=== PATIENT | female | born 1960 | race African-American/Black ===

== ENCOUNTER 2018-12-06 10:31 | Inpatient (IN) | payer MEDICARE, MEDICAID ==
[~2018-12-06] VITALS: Ht 162.6 cm; Wt 132.4 kg
[~2018-12-06 10:31] MED LIST: ACET-2178 PO; AMLO10TA80 PO; ASPI-1159 PO; ATOR10TA PO; BENA40TA9 PO; CLON0.1T PO; GABA-531 PO; HYDR25TA PO; SUMA100T PO; TRAZ-213 PO
[2018-12-06 10:54] LABS: BASOPHILS % 0.4 % (0.0-2.0); EOSINOPHILS % 1.2 % (0.0-5.0); HEMATOCRIT. 36.4 % (36.0-48.0); HEMOGLOBIN. 11.8 g/dL (12.0-16.0); MEAN PLATELET VOLUME 7.4 fl (7.4-10.4); MONOCYTES % 6.7 % (2.0-8.0); NEUTROPHILS % 67.7 % (40.0-76.0); PLATELET 260 x1000/uL (130-400); RED BLOOD CELL COUNT 4.39 mill/uL (4.2-5.4); RED CELL DISTRIBUTION WIDTH 14.7 % (11.6-14.6)
[2018-12-06 10:59] LABS: CHLORIDE 105 mEq/L (98-107)
[2018-12-06 11:04] LABS: ETHANOL BLOOD < 10 mg/dL; PROTHROMBIN TIME 10.3 sec (9.6-11.0)
[2018-12-06 11:56] LABS: CLARITY URINE CLEAR (CLEAR); COLOR URINE YELLOW (YELLOW); KETONES URINE NEGATIVE (NEGATIVE); LEUKOCYTE ESTERASE URINE NEGATIVE (NEGATIVE); NITRITE URINE NEGATIVE (NEGATIVE); OCCULT BLOOD URINE NEGATIVE (NEGATIVE); PH URINE 5.5 (4.5-8.0); PROTEIN URINE NEGATIVE (NEGATIVE); SPECIFIC GRAVITY URINE 1.004 (1.005-1.030); UROBILINOGEN URINE 0.2 E.U./dL (0.2-1.0)
[2018-12-06 12:13] LABS: *AMPHETAMINES SCREEN URINE NEGATIVE (NEGATIVE); *BARBITURATES SCREEN URINE NEGATIVE (NEGATIVE); *BENZODIAZEPINES SCREEN URINE NEGATIVE (NEGATIVE); *COCAINE SCREEN URINE NEGATIVE (NEGATIVE); METHADONE URINE SCREEN NEGATIVE (NEGATIVE)
[2018-12-06 12:14] LABS: CANNABINOID URINE SCREEN NEGATIVE (NEGATIVE); OPIATES URINE SCREEN NEGATIVE (NEGATIVE); PHENCYCLIDINE URINE SCREEN NEGATIVE (NEGATIVE)
[2018-12-06] MEDS ORDERED: SODIUM BICARBONATE 4% (2.4MEQ) 5ML VIAL IV ONE (15:45)
[2018-12-06] MEDS ORDERED: LIDOCAINE HCL 1% 20ML VIAL (Pyxis) INJ ONE (15:45)
[2018-12-06] MEDS ORDERED: IOHEXOL-350 100 ML BOTTLE ONE (16:23)
[2018-12-06] MEDS ORDERED: MORPHINE SULFATE 4 MG/ML CPJ (NOT FOR IM USE) IV NR (17:45)
[2018-12-06 21:55] VITALS: BP 130/62
[2018-12-06 22:00] VITALS: BP 130/62
[2018-12-06] MEDS ORDERED: FURO40TA5 MT (22:41)
[2018-12-06] MEDS ORDERED: DOCUSATE SODIUM 100MG CAPSULE PO PRN (23:15)
[2018-12-06] MEDS ORDERED: CLONIDINE 0.1MG TABLET PO PRN (23:15)
[2018-12-06] MEDS ORDERED: ONDANSETRON HCL 4MG/2ML INJ IV PRN (23:15)
[2018-12-06] MEDS ORDERED: GUAIFENESIN 200MG/10ML SUGAR FREE UDC PO PRN (23:15)
[2018-12-06] MEDS ORDERED: MAGNESIUM/ALUMINUM HYDROXIDE/SIMETHICONE 30ML UDC PO PRN (23:15)
[2018-12-06] MEDS ORDERED: ACETAMINOPHEN 325MG TABLET PO PRN (23:15)
[2018-12-06 23:54] VITALS: BP 99/71
[2018-12-07] VITALS (13 sets, daily range): BP systolic 91–128; BP diastolic 39–77
[2018-12-07] MEDS: HYDROCODONE/ACETAMINOPHEN 5/325MG TABLET PO PRN ×5 (00:04→22:22)
[2018-12-07 06:59] LABS: CHLORIDE 106 mEq/L (98-107)
[2018-12-07 07:13] LABS: BASOPHILS % 0.6 % (0.0-2.0); EOSINOPHILS % 1.7 % (0.0-5.0); HEMATOCRIT. 33.9 % (36.0-48.0); HEMOGLOBIN. 11.4 g/dL (12.0-16.0); LYMPHOCYTES % 23.8 % (20.0-50.0); MEAN CORPUSCULAR HEMOGLOBIN 27.7 pg (28.0-32.0); MEAN CORPUSCULAR VOLUME 82.6 fL (81.0-99.0); MONOCYTES % 6.1 % (2.0-8.0); NEUTROPHILS % 67.8 % (40.0-76.0); RED CELL DISTRIBUTION WIDTH 14.5 % (11.6-14.6)
[2018-12-07] MEDS: ASPIRIN 81MG EC TABLET PO SCH (08:37)
[2018-12-07] MEDS: CLOPIDOGREL 75MG TABLET PO SCH (08:37)
[2018-12-07] MEDS: AMLODIPINE 10MG TABLET PO SCH (09:00)
[2018-12-07 09:12] LABS: T4 FREE 0.85 ng/dL (0.76-1.46)
[2018-12-07 09:43] LABS: FOLIC ACID (FOLATE) SERUM 16.5 ng/mL (>5.38)
[2018-12-07] MEDS ORDERED: POTASSIUM CHLORIDE 20MEQ TABLET SR PO NR (11:00)
[2018-12-07 13:07] LABS: PLATELET 184 x1000/uL (130-400)
[2018-12-07] MEDS: ATORVASTATIN CALCIUM 20MG TABLET PO SCH (20:20)
[2018-12-08] VITALS (14 sets, daily range): BP systolic 101–144; BP diastolic 64–109
[2018-12-08] MEDS: CLOPIDOGREL 75MG TABLET PO SCH (08:24)
[2018-12-08] MEDS: ASPIRIN 81MG EC TABLET PO SCH (08:26)
[2018-12-08] MEDS: AMLODIPINE 10MG TABLET PO SCH (08:26)
[2018-12-08] MEDS: HYDROCODONE/ACETAMINOPHEN 5/325MG TABLET PO PRN ×3 (08:26→22:07)
[2018-12-08] MEDS: ATORVASTATIN CALCIUM 20MG TABLET PO SCH (22:02)
[2018-12-09] VITALS (13 sets, daily range): BP systolic 98–153; BP diastolic 49–90
[2018-12-09] MEDS: ASPIRIN 81MG EC TABLET PO SCH (08:36)
[2018-12-09] MEDS: CLOPIDOGREL 75MG TABLET PO SCH (08:36)
[2018-12-09] MEDS: AMLODIPINE 10MG TABLET PO SCH (08:36)
[2018-12-09] MEDS: HYDROCODONE/ACETAMINOPHEN 5/325MG TABLET PO PRN (08:37)
[2018-12-09 11:29] LABS: T4 FREE 0.78 ng/dL (0.76-1.46)
[2018-12-09] MEDS: HYDROMORPHONE HCL/PF 2MG/ML CPJ IV PRN ×2 (14:26→20:05)
[2018-12-09 16:12] LABS: CREATINE KINASE 83 IU/L (26-192)
[2018-12-09 16:13] LABS: CREATINE KINASE MB FRACTION 3.2 ng/mL (0.5-3.6)
[2018-12-09] MEDS ORDERED: REGADENOSON 0.4 MG/5 ML IV NR (18:30)
[2018-12-09] MEDS: ATORVASTATIN CALCIUM 20MG TABLET PO SCH (21:37)
[2018-12-09 23:50] LABS: CREATINE KINASE 93 IU/L (26-192)
[2018-12-09 23:51] LABS: CREATINE KINASE MB FRACTION < 1.0 ng/mL (0.5-3.6)
[2018-12-10] VITALS: BP 119/62
[2018-12-10 02:00] VITALS: BP 133/70
[2018-12-10 04:00] VITALS: BP 120/75
[2018-12-10 06:00] VITALS: BP 131/93
[2018-12-10 07:01] LABS: CREATINE KINASE 86 IU/L (26-192)
[2018-12-10 07:02] LABS: CREATINE KINASE MB FRACTION < 1.0 ng/mL (0.5-3.6)
[2018-12-10] MEDS ORDERED: REGADENOSON 0.4 MG/5 ML IV ONE (07:46)
[2018-12-10] MEDS: AMLODIPINE 10MG TABLET PO SCH (09:00)
[2018-12-10 09:26] VITALS: BP 96/52
[2018-12-10] MEDS: CLOPIDOGREL 75MG TABLET PO SCH (09:41)
[2018-12-10] MEDS: ASPIRIN 81MG EC TABLET PO SCH (09:41)
[2018-12-10] MEDS: HYDROMORPHONE HCL/PF 2MG/ML CPJ IV PRN (09:42)
[2018-12-10 10:02] VITALS: BP 160/95
== END 2018-12-10 11:41 | DRG 74 ==
LOC: ER 10:31 → 3WST 13:26 → EDBEDREQ 13:30 → ENRESERV 19:47
PROVIDERS: ADMIT Hospitalist; ATTEND Hospitalist
PROC: 02HV33Z Insertion of Infusion Device into Superior Vena Cava, Percutaneous Approach (ICD-10-PCS; principal; 2018-12-06)
PROC: B5181ZA Fluoroscopy of Superior Vena Cava using Low Osmolar Contrast, Guidance (ICD-10-PCS; 2018-12-06)
PROC: B548ZZA Ultrasonography of Superior Vena Cava, Guidance (ICD-10-PCS; 2018-12-06)
DX: G90.8 Other disorders of autonomic nervous system (principal); I69.354 Hemiplegia and hemiparesis following cerebral infarction affecting left non-dominant side; E78.00 Pure hypercholesterolemia, unspecified; I10 Essential (primary) hypertension; G43.909 Migraine, unspecified, not intractable, without status migrainosus; D64.9 Anemia, unspecified; E78.5 Hyperlipidemia, unspecified; H54.7 Unspecified visual loss; I11.9 Hypertensive heart disease without heart failure; M47.812 Spondylosis without myelopathy or radiculopathy, cervical region; M79.2 Neuralgia and neuritis, unspecified; Z82.49 Family history of ischemic heart disease and other diseases of the circulatory system; Z95.0 Presence of cardiac pacemaker; Z79.899 Other long term (current) drug therapy; Z79.82 Long term (current) use of aspirin
CPT/HCPCS: 36415; 36569; 36573; 70496; 70498; 71045; 78452; 78582; 80061; 80305; 80320; 82550; 82553; 82607; 82746; 83036; 83721; 83880; 84439; 84443; 84481; 84484; 85379; 92610; 93005; 93017; 93306; 93970; 96374; 97116; 97162; 97166; 97530; 99291; A9500; A9558; C1725; C1769; J1170; J2270; J2785; J3490; Q9967; G0480

== ENCOUNTER 2018-12-10 11:45 | Inpatient (IN) | payer MEDICARE, MEDICAID ==
[~2018-12-10] VITALS: Ht 162.5 cm; Wt 133.8 kg
[~2018-12-10 11:45] MED LIST changes: -AMLO10TA80 PO; +FURO40TA5 MT
[2018-12-10 12:00] VITALS: BP 120/57
[2018-12-10] MEDS ORDERED: DOCUSATE SODIUM 250MG CAPSULE PO PRN (13:15)
[2018-12-10] MEDS ORDERED: ONDANSETRON HCL 4MG TABLET PO PRN (13:15)
[2018-12-10] MEDS ORDERED: CLONIDINE 0.1MG TABLET PO PRN (13:15)
[2018-12-10] MEDS ORDERED: MAGNESIUM/ALUMINUM HYDROXIDE/SIMETHICONE 30ML UDC PO PRN (13:15)
[2018-12-10] MEDS ORDERED: ACETAMINOPHEN 650MG/20.3ML UDC PO PRN (13:15)
[2018-12-10] MEDS ORDERED: GUAIFENESIN 200MG/10ML SUGAR FREE UDC PO PRN (13:15)
[2018-12-10] MEDS: HYDROCODONE/ACETAMINOPHEN 5/325MG TABLET PO PRN ×2 (14:32→21:06)
[2018-12-10 20:00] VITALS: BP 119/78
[2018-12-10] MEDS: ATORVASTATIN CALCIUM 20MG TABLET PO SCH (21:06)
[2018-12-11 08:00] VITALS: BP 135/72
[2018-12-11 08:28] VITALS: BP 135/72
[2018-12-11] MEDS: CLOPIDOGREL 75MG TABLET PO SCH (08:38)
[2018-12-11] MEDS: AMLODIPINE 10MG TABLET PO SCH (08:38)
[2018-12-11] MEDS: ASPIRIN 81MG EC TABLET PO SCH (08:38)
[2018-12-11] MEDS: HYDROCODONE/ACETAMINOPHEN 5/325MG TABLET PO PRN ×3 (08:39→19:51)
[2018-12-11 14:08] LABS: BASOPHILS % 0.4 % (0.0-2.0); EOSINOPHILS % 1.5 % (0.0-5.0); HEMATOCRIT. 36.8 % (36.0-48.0); HEMOGLOBIN. 12.1 g/dL (12.0-16.0); LYMPHOCYTES % 21.7 % (20.0-50.0); MEAN CORPUSCULAR HEMOGLOBIN 27.2 pg (28.0-32.0); MEAN CORPUSCULAR VOLUME 82.9 fL (81.0-99.0); MEAN PLATELET VOLUME 7.4 fl (7.4-10.4); MONOCYTES % 5.6 % (2.0-8.0); NEUTROPHILS % 70.8 % (40.0-76.0); PLATELET 250 x1000/uL (130-400); RED BLOOD CELL COUNT 4.44 mill/uL (4.2-5.4); RED CELL DISTRIBUTION WIDTH 14.4 % (11.6-14.6)
[2018-12-11 14:09] LABS: CHLORIDE 109 mEq/L (98-107)
[2018-12-11 16:20] LABS: COLOR URINE YELLOW (YELLOW); KETONES URINE NEGATIVE (NEGATIVE); LEUKOCYTE ESTERASE URINE TRACE (NEGATIVE); NITRITE URINE NEGATIVE (NEGATIVE); OCCULT BLOOD URINE NEGATIVE (NEGATIVE); PH URINE 5.5 (4.5-8.0); PROTEIN URINE NEGATIVE (NEGATIVE); SPECIFIC GRAVITY URINE 1.029 (1.005-1.030)
[2018-12-11 16:22] LABS: CLARITY URINE HAZY (CLEAR)
[2018-12-11 19:40] VITALS: BP 116/75
[2018-12-11] MEDS: ATORVASTATIN CALCIUM 20MG TABLET PO SCH (20:35)
[2018-12-12 07:42] LABS: FOLIC ACID (FOLATE) SERUM 13.8 ng/mL (>5.38)
[2018-12-12 07:45] LABS: BASOPHILS % 0.4 % (0.0-2.0); EOSINOPHILS % 1.9 % (0.0-5.0); HEMOGLOBIN. 11.5 g/dL (12.0-16.0); LYMPHOCYTES % 26.3 % (20.0-50.0); MEAN CORPUSCULAR HEMOGLOBIN 27.4 pg (28.0-32.0); MEAN CORPUSCULAR VOLUME 83.2 fL (81.0-99.0); MEAN PLATELET VOLUME 7.7 fl (7.4-10.4); MONOCYTES % 5.3 % (2.0-8.0); NEUTROPHILS % 66.1 % (40.0-76.0); PLATELET 245 x1000/uL (130-400); RED CELL DISTRIBUTION WIDTH 14.3 % (11.6-14.6)
[2018-12-12 08:00] VITALS: BP 113/87
[2018-12-12 08:20] LABS: CHLORIDE 110 mEq/L (98-107)
[2018-12-12 08:31] LABS: PHOSPHORUS 3.4 mg/dL (2.5-4.9)
[2018-12-12 08:34] LABS: LDL CHOLESTEROL 74 mg/dL (5-100)
[2018-12-12 08:36] LABS: HDL CHOLESTEROL 51 mg/dL (40-59)
[2018-12-12 08:38] LABS: TOTAL IRON BINDING CAPACITY 261 ug/dL (250-450)
[2018-12-12] MEDS: CLOPIDOGREL 75MG TABLET PO SCH (09:57)
[2018-12-12] MEDS: HYDROCODONE/ACETAMINOPHEN 5/325MG TABLET PO PRN ×2 (09:57→16:56)
[2018-12-12] MEDS: AMLODIPINE 10MG TABLET PO SCH (09:57)
[2018-12-12] MEDS: ASPIRIN 81MG EC TABLET PO SCH (09:57)
[2018-12-12] MEDS ORDERED: CYANOCOBALAMIN 1000MCG/ML VIAL IM NR (18:00)
[2018-12-12 20:00] VITALS: BP 118/98
[2018-12-12] MEDS: ATORVASTATIN CALCIUM 20MG TABLET PO SCH (20:25)
[2018-12-13] MEDS: HYDROCODONE/ACETAMINOPHEN 5/325MG TABLET PO PRN ×3 (00:29→08:00)
[2018-12-13 08:00] VITALS: BP 133/88
[2018-12-13] MEDS: CLOPIDOGREL 75MG TABLET PO SCH (09:11)
[2018-12-13] MEDS: ASCORBIC ACID 500 MG TABLET PO SCH (09:11)
[2018-12-13] MEDS: ASPIRIN 81MG EC TABLET PO SCH (09:11)
[2018-12-13] MEDS: FERROUS SULFATE 325MG TABLET PO SCH ×3 (09:11→16:31)
[2018-12-13] MEDS: AMLODIPINE 10MG TABLET PO SCH (09:12)
[2018-12-13] MEDS: HYDROCODONE/ACETAMINOPHEN 10/325MG TABLET PO PRN ×2 (15:56→22:00)
[2018-12-13 20:00] VITALS: BP 131/73
[2018-12-13] MEDS: ATORVASTATIN CALCIUM 20MG TABLET PO SCH (21:18)
[2018-12-14 08:00] VITALS: BP 143/92
[2018-12-14] MEDS: CLOPIDOGREL 75MG TABLET PO SCH (08:34)
[2018-12-14] MEDS: ASCORBIC ACID 500 MG TABLET PO SCH (08:34)
[2018-12-14] MEDS: ASPIRIN 81MG EC TABLET PO SCH (08:34)
[2018-12-14] MEDS: AMLODIPINE 10MG TABLET PO SCH (08:34)
[2018-12-14] MEDS: FERROUS SULFATE 325MG TABLET PO SCH ×3 (08:34→16:03)
[2018-12-14] MEDS: HYDROCODONE/ACETAMINOPHEN 10/325MG TABLET PO PRN ×3 (08:39→21:46)
[2018-12-14 08:56] LABS: T4 FREE 0.85 ng/dL (0.76-1.46)
[2018-12-14 20:00] VITALS: BP 123/62
[2018-12-14] MEDS: ATORVASTATIN CALCIUM 20MG TABLET PO SCH (21:02)
[2018-12-15 08:00] VITALS: BP 136/73
[2018-12-15] MEDS: AMLODIPINE 10MG TABLET PO SCH (08:16)
[2018-12-15] MEDS: FERROUS SULFATE 325MG TABLET PO SCH (08:16)
[2018-12-15] MEDS: ASPIRIN 81MG EC TABLET PO SCH (08:16)
[2018-12-15] MEDS: ASCORBIC ACID 500 MG TABLET PO SCH (08:16)
[2018-12-15] MEDS: CLOPIDOGREL 75MG TABLET PO SCH (08:16)
[2018-12-15] MEDS: HYDROCODONE/ACETAMINOPHEN 10/325MG TABLET PO PRN (08:29)
[2018-12-15 09:22] VITALS: BP 136/73
[2018-12-15 19:10] LABS: 25-HYDROXY VITAMIN D3 12 ng/mL (.)
== END 2018-12-15 12:26 | disposition home health service (06) | DRG 56 ==
PROVIDERS: ADMIT Physical Medicine & Rehabilitation Spinal Cord Injury Medicine; ATTEND Hospitalist
DX: I69.354 Hemiplegia and hemiparesis following cerebral infarction affecting left non-dominant side (principal); I63.9 Cerebral infarction, unspecified; Z68.43 Body mass index [BMI] 50.0-59.9, adult; E78.00 Pure hypercholesterolemia, unspecified; G43.909 Migraine, unspecified, not intractable, without status migrainosus; H54.7 Unspecified visual loss; I10 Essential (primary) hypertension; R53.81 Other malaise; D50.9 Iron deficiency anemia, unspecified; M47.812 Spondylosis without myelopathy or radiculopathy, cervical region; E78.5 Hyperlipidemia, unspecified; E66.01 Morbid (severe) obesity due to excess calories; E03.9 Hypothyroidism, unspecified; Z95.0 Presence of cardiac pacemaker; Z82.49 Family history of ischemic heart disease and other diseases of the circulatory system; Z79.899 Other long term (current) drug therapy; Z79.02 Long term (current) use of antithrombotics/antiplatelets; Z79.82 Long term (current) use of aspirin; Z80.8 Family history of malignant neoplasm of other organs or systems
CPT/HCPCS: 36415; 80048; 80061; 82306; 82607; 82728; 82746; 83540; 83550; 83735; 84100; 84134; 84439; 84443; 84481; 92523; 92610; 93970; 93971; 97110; 97116; 97162; 97166; 97530; 97535; G0515; J3420

== ENCOUNTER 2019-06-21 00:05 | Inpatient (IN) | payer MEDICARE, MEDICAID ==
[~2019-06-21] VITALS: Ht 162.6 cm; Wt 118.4 kg
[~2019-06-21 00:05] MED LIST changes: -ACET-2178 PO; +AMLO10TA80 MT; +ASCO500C15 MT; -ASPI-1159 PO; +ASPI-1393 PO; -ATOR10TA PO; +ATOR10TA69 MT; +ATOR20TA PO; -CLON0.1T PO; +CLOP75TA33 MT; +HYDR25TA MT; -HYDR25TA PO; +SPIR25TA6 PO; -SUMA100T PO
[2019-06-21] MEDS ORDERED: ONDANSETRON HCL 4MG/2ML INJ IV ONE (01:15)
[2019-06-21] MEDS ORDERED: MORPHINE SULFATE 4 MG/ML CPJ (NOT FOR IM USE) IV ONE (01:15)
[2019-06-21 01:36] LABS: BASOPHILS % 0.8 % (0.0-2.0); EOSINOPHILS % 1.5 % (0.0-5.0); HEMATOCRIT. 34.3 % (36.0-48.0); HEMOGLOBIN. 11.4 g/dL (12.0-16.0); MEAN CORPUSCULAR HEMOGLOBIN 28.2 pg (28.0-32.0); MEAN CORPUSCULAR VOLUME 84.7 fL (81.0-99.0); MEAN PLATELET VOLUME 7.6 fl (7.4-10.4); MONOCYTES % 6.3 % (2.0-8.0); NEUTROPHILS % 64.4 % (40.0-76.0); PLATELET 253 x1000/uL (130-400); RED BLOOD CELL COUNT 4.05 mill/uL (4.2-5.4); RED CELL DISTRIBUTION WIDTH 14.2 % (11.6-14.6)
[2019-06-21 01:40] LABS: CHLORIDE 110 mEq/L (98-107)
[2019-06-21 02:18] LABS: PARTIAL THROMBOPLASTIN TIME 26.3 sec (23.4-31.0); PROTHROMBIN TIME 10.1 sec (9.6-11.0)
[2019-06-21] MEDS ORDERED: IOHEXOL-350 100 ML BOTTLE ONE (05:19)
[2019-06-21] MEDS ORDERED: LORAZEPAM 0.5MG TABLET PO PRN (06:45)
[2019-06-21] MEDS ORDERED: NITROGLYCERIN 0.4MG TABLET SL SL PRN (06:45)
[2019-06-21] MEDS ORDERED: MAGNESIUM/ALUMINUM HYDROXIDE/SIMETHICONE 30ML UDC PO PRN (06:45)
[2019-06-21] MEDS ORDERED: IPRATROPIUM/ALBUTEROL 0.5-3(2.5)MG/3ML NEB NEB PRN (06:45)
[2019-06-21] MEDS ORDERED: ACETAMINOPHEN 325MG TABLET PO PRN (06:45)
[2019-06-21] MEDS ORDERED: ONDANSETRON HCL 4MG/2ML INJ IV PRN (06:45)
[2019-06-21] MEDS ORDERED: DOCUSATE SODIUM 100MG CAPSULE PO PRN (06:45)
[2019-06-21] MEDS ORDERED: GUAIFENESIN 200MG/10ML SUGAR FREE UDC PO PRN (06:45)
[2019-06-21] MEDS ORDERED: ZOLPIDEM TARTRATE 5MG TABLET PO PRN (06:45)
[2019-06-21] MEDS ORDERED: KETOROLAC 15MG/ML VIAL IV PRN (06:45)
[2019-06-21] MEDS ORDERED: CLONIDINE 0.1MG TABLET PO PRN (06:45)
[2019-06-21] MEDS: HYDROCODONE/ACETAMINOPHEN 10/325MG TABLET PO PRN ×2 (07:55→21:47)
[2019-06-21 08:50] VITALS: BP 121/70
[2019-06-21 09:00] VITALS: BP 121/71
[2019-06-21] MEDS ORDERED: ASPIRIN 325MG EC TABLET PO SCH (09:00)
[2019-06-21] MEDS ORDERED: ENOXAPARIN 40MG/0.4ML SYR SUBCUT SCH (09:00)
[2019-06-21] MEDS ORDERED: APIX5TAB PO (11:06)
[2019-06-21] MEDS: FAMOTIDINE 20MG TABLET PO SCH ×2 (11:15→21:00)
[2019-06-21] MEDS: LISINOPRIL 20MG TABLET PO SCH ×2 (11:15→21:00)
[2019-06-21] MEDS: AMLODIPINE 10MG TABLET PO SCH (11:15)
[2019-06-21] MEDS ORDERED: APIXABAN 5 MG TABLET PO SCH ×3 (11:15→17:30)
[2019-06-21 12:00] VITALS: BP 104/66
[2019-06-21 16:00] VITALS: BP 90/56
[2019-06-21 17:46] LABS: CREATINE KINASE 168 IU/L (26-192)
[2019-06-21 17:47] LABS: CREATINE KINASE MB FRACTION 1.3 ng/mL (0.5-3.6)
[2019-06-21] MEDS: CARVEDILOL 3.125 MG TABLET PO SCH (18:00)
[2019-06-21 20:00] VITALS: BP 118/75
[2019-06-21] MEDS ORDERED: INFLUENZA VIRUS VACCINE(AFLURIA) 0.5ML SYR IM ONE (21:00)
[2019-06-21] MEDS: APIXABAN 5 MG TABLET PO SCH (21:44)
[2019-06-22] VITALS: BP 119/62
[2019-06-22 01:10] LABS: CREATINE KINASE 150 IU/L (26-192)
[2019-06-22 01:12] LABS: CREATINE KINASE MB FRACTION 1.4 ng/mL (0.5-3.6)
[2019-06-22 04:00] VITALS: BP 114/67
[2019-06-22] MEDS: CARVEDILOL 3.125 MG TABLET PO SCH ×2 (06:52→17:33)
[2019-06-22 07:02] LABS: CHLORIDE 112 mEq/L (98-107)
[2019-06-22 07:20] LABS: BASOPHILS % 0.3 % (0.0-2.0); EOSINOPHILS % 2.3 % (0.0-5.0); HEMOGLOBIN. 10.3 g/dL (12.0-16.0); MEAN CORPUSCULAR VOLUME 84.6 fL (81.0-99.0); MEAN PLATELET VOLUME 7.8 fl (7.4-10.4); MONOCYTES % 6.4 % (2.0-8.0); PLATELET 229 x1000/uL (130-400); RED BLOOD CELL COUNT 3.67 mill/uL (4.2-5.4); RED CELL DISTRIBUTION WIDTH 14.1 % (11.6-14.6)
[2019-06-22 08:00] VITALS: BP 125/76
[2019-06-22] MEDS: LISINOPRIL 20MG TABLET PO SCH ×2 (08:52→21:12)
[2019-06-22] MEDS: AMLODIPINE 10MG TABLET PO SCH (08:52)
[2019-06-22] MEDS: APIXABAN 5 MG TABLET PO SCH ×2 (08:53→21:11)
[2019-06-22] MEDS: FAMOTIDINE 20MG TABLET PO SCH ×2 (08:54→21:12)
[2019-06-22 12:00] VITALS: BP 121/77
[2019-06-22] MEDS: HYDROCODONE/ACETAMINOPHEN 10/325MG TABLET PO PRN ×2 (14:04→21:11)
[2019-06-22 16:00] VITALS: BP 128/82
[2019-06-22] MEDS ORDERED: APIX5TAB PO (20:06)
[2019-06-22] MEDS ORDERED: ATOR20TA PO (20:07)
[2019-06-22] MEDS ORDERED: FURO-151 PO (20:12)
[2019-06-22] MEDS ORDERED: TRAM50TA3 PO (20:12)
[2019-06-22 21:00] VITALS: BP 118/80
[2019-06-23] VITALS: BP 119/63
[2019-06-23 04:00] VITALS: BP 129/78
[2019-06-23] MEDS: CARVEDILOL 3.125 MG TABLET PO SCH (05:10)
[2019-06-23 08:00] VITALS: BP 125/65
[2019-06-23] MEDS: FAMOTIDINE 20MG TABLET PO SCH (09:00)
[2019-06-23] MEDS: APIXABAN 5 MG TABLET PO SCH (09:02)
[2019-06-23] MEDS: LISINOPRIL 20MG TABLET PO SCH (09:02)
[2019-06-23] MEDS: AMLODIPINE 10MG TABLET PO SCH (09:03)
[2019-06-23 12:00] VITALS: BP 116/68
[2019-06-23 14:39] VITALS: BP 116/68
== END 2019-06-23 15:27 | disposition home or self-care (01) | DRG 313 ==
LOC: ER 00:05 → 6WST 05:16 → EDBEDREQ 05:19 → EDBEDREQTM 05:19 → ENRESERV 08:11 → SUPCPDRO 08:49
PROVIDERS: ADMIT Internal Medicine; ATTEND Internal Medicine
DX: R07.89 Other chest pain (principal); I42.9 Cardiomyopathy, unspecified; Z68.41 Body mass index [BMI] 40.0-44.9, adult; E66.01 Morbid (severe) obesity due to excess calories; E78.00 Pure hypercholesterolemia, unspecified; G47.00 Insomnia, unspecified; I11.0 Hypertensive heart disease with heart failure; E78.5 Hyperlipidemia, unspecified; E11.43 Type 2 diabetes mellitus with diabetic autonomic (poly)neuropathy; F32.9 Major depressive disorder, single episode, unspecified; F41.9 Anxiety disorder, unspecified; I50.9 Heart failure, unspecified; G62.9 Polyneuropathy, unspecified; Z86.711 Personal history of pulmonary embolism; Z86.73 Personal history of transient ischemic attack (TIA), and cerebral infarction without residual deficits; Z95.810 Presence of automatic (implantable) cardiac defibrillator; Z79.899 Other long term (current) drug therapy; Z86.718 Personal history of other venous thrombosis and embolism
CPT/HCPCS: 36415; 71045; 71275; 80048; 80061; 82550; 82553; 83036; 83735; 83880; 84443; 84484; 90686; 93005; 93970; 97162; 97166; 99285; J2270; J2405; Q9967

== ENCOUNTER 2019-12-12 15:19 | Inpatient (IN) | payer MEDICARE, MEDICAID ==
[~2019-12-12] VITALS: Ht 162.6 cm; Wt 136.5 kg
[~2019-12-12 15:19] MED LIST changes: +APIX5TAB PO; -ASPI-1393 PO; -ATOR10TA69 MT; +FURO-151 PO; -FURO40TA5 MT; -HYDR25TA MT; -SPIR25TA6 PO; +TRAM50TA3 PO; -TRAZ-213 PO; +TRAZ-252 PO
[2019-12-12] MEDS ORDERED: MORPHINE SULFATE 4 MG/ML CPJ (NOT FOR IM USE) IV STA (15:33)
[2019-12-12] MEDS ORDERED: ONDANSETRON HCL 4MG/2ML INJ IV STA (15:33)
[2019-12-12 16:07] LABS: BASOPHILS % 0.7 % (0.0-2.0); EOSINOPHILS % 1.3 % (0.0-5.0); HEMATOCRIT. 36.6 % (36.0-48.0); LYMPHOCYTES % 25.7 % (20.0-50.0); MEAN CORPUSCULAR HEMOGLOBIN 27.8 pg (28.0-32.0); MEAN CORPUSCULAR VOLUME 85.1 fL (81.0-99.0); MEAN PLATELET VOLUME 7.6 fl (7.4-10.4); MONOCYTES % 6.3 % (2.0-8.0); PLATELET 257 x1000/uL (130-400); RED BLOOD CELL COUNT 4.31 mill/uL (4.2-5.4); RED CELL DISTRIBUTION WIDTH 14.3 % (11.6-14.6)
[2019-12-12 16:08] LABS: CHLORIDE 110 mEq/L (98-107)
[2019-12-12 16:12] LABS: ETHANOL BLOOD < 10 mg/dL
[2019-12-12 16:16] LABS: CLARITY URINE CLEAR (CLEAR); COLOR URINE YELLOW (YELLOW); KETONES URINE NEGATIVE (NEGATIVE); LEUKOCYTE ESTERASE URINE NEGATIVE (NEGATIVE); NITRITE URINE NEGATIVE (NEGATIVE); OCCULT BLOOD URINE NEGATIVE (NEGATIVE); PROTEIN URINE NEGATIVE (NEGATIVE); SPECIFIC GRAVITY URINE 1.008 (1.005-1.030); UROBILINOGEN URINE 0.2 E.U./dL (0.2-1.0)
[2019-12-12 16:23] LABS: D-DIMER 1.11 mg/L FEU (<0.50); INR 0.9; PARTIAL THROMBOPLASTIN TIME 26.8 sec (23.4-31.0); PROTHROMBIN TIME 10.1 sec (9.6-11.0)
[2019-12-12 16:57] LABS: *AMPHETAMINES SCREEN URINE NEGATIVE (NEGATIVE); *BARBITURATES SCREEN URINE NEGATIVE (NEGATIVE); *BENZODIAZEPINES SCREEN URINE NEGATIVE (NEGATIVE); *COCAINE SCREEN URINE NEGATIVE (NEGATIVE); METHADONE URINE SCREEN NEGATIVE (NEGATIVE); OPIATES URINE SCREEN NEGATIVE (NEGATIVE)
[2019-12-12 16:58] LABS: CANNABINOID URINE SCREEN NEGATIVE (NEGATIVE); PHENCYCLIDINE URINE SCREEN NEGATIVE (NEGATIVE)
[2019-12-12] MEDS ORDERED: DOCUSATE SODIUM 100MG CAPSULE PO PRN (18:00)
[2019-12-12] MEDS ORDERED: CLONIDINE 0.1MG TABLET PO PRN (18:00)
[2019-12-12] MEDS ORDERED: MAGNESIUM/ALUMINUM HYDROXIDE/SIMETHICONE 30ML UDC PO PRN (18:00)
[2019-12-12] MEDS ORDERED: ONDANSETRON HCL 4MG/2ML INJ IV PRN (18:00)
[2019-12-12] MEDS ORDERED: ACETAMINOPHEN 325MG TABLET PO PRN (18:00)
[2019-12-12] MEDS ORDERED: GUAIFENESIN 200MG/10ML SUGAR FREE UDC PO PRN (18:00)
[2019-12-12] MEDS ORDERED: APIXABAN 5 MG TABLET PO SCH (18:07)
[2019-12-12] MEDS ORDERED: LORAZEPAM 2MG/ML CPJ IV ONE (18:15)
[2019-12-12] MEDS: MORPHINE SULFATE 2 MG/ML CPJ (NOT FOR IM USE) IV PRN (22:09)
[2019-12-12 23:51] LABS: CREATINE KINASE 129 IU/L (26-192)
[2019-12-13] MEDS: HYDROCODONE/ACETAMINOPHEN 5/325MG TABLET PO PRN ×2 (03:13→08:32)
[2019-12-13 05:41] LABS: BASOPHILS % 0.6 % (0.0-2.0); EOSINOPHILS % 1.7 % (0.0-5.0); HEMATOCRIT. 34.1 % (36.0-48.0); HEMOGLOBIN. 11.3 g/dL (12.0-16.0); LYMPHOCYTES % 29.3 % (20.0-50.0); MEAN CORPUSCULAR HEMOGLOBIN 27.9 pg (28.0-32.0); MEAN CORPUSCULAR VOLUME 84.3 fL (81.0-99.0); MEAN PLATELET VOLUME 7.4 fl (7.4-10.4); NEUTROPHILS % 62.4 % (40.0-76.0); PLATELET 250 x1000/uL (130-400); RED BLOOD CELL COUNT 4.04 mill/uL (4.2-5.4); RED CELL DISTRIBUTION WIDTH 14.5 % (11.6-14.6)
[2019-12-13 05:52] LABS: CHLORIDE 107 mEq/L (98-107)
[2019-12-13 05:59] LABS: LDL CHOLESTEROL 105 mg/dL (5-100)
[2019-12-13 06:00] LABS: CREATINE KINASE 120 IU/L (26-192); HDL CHOLESTEROL 49 mg/dL (40-59)
[2019-12-13 09:00] VITALS: BP 152/80
[2019-12-13] MEDS ORDERED: CLOPIDOGREL 75MG TABLET PO SCH (09:30)
[2019-12-13] MEDS ORDERED: TRAMADOL 50MG TABLET PO PRN (09:30)
[2019-12-13] MEDS: FUROSEMIDE 40MG TABLET PO SCH (12:12)
[2019-12-13] MEDS: ASCORBIC ACID 500 MG TABLET PO SCH (12:12)
[2019-12-13] MEDS: LISINOPRIL 40MG TABLET PO SCH (12:13)
[2019-12-13] MEDS: AMLODIPINE 10MG TABLET PO SCH (12:13)
[2019-12-13] MEDS: APIXABAN 5 MG TABLET PO SCH ×2 (12:13→16:01)
[2019-12-13] MEDS: MORPHINE SULFATE 2 MG/ML CPJ (NOT FOR IM USE) IV PRN ×2 (12:20→15:52)
[2019-12-13 15:50] VITALS: BP 122/73
[2019-12-13 20:00] VITALS: BP 111/72
[2019-12-13] MEDS ORDERED: ATORVASTATIN CALCIUM 20MG TABLET PO SCH (21:00)
[2019-12-13] MEDS: TRAZODONE HCL 50MG TABLET PO SCH (21:06)
[2019-12-13] MEDS: GABAPENTIN 300MG CAPSULE PO SCH (21:06)
[2019-12-14] VITALS: BP 97/57
[2019-12-14 04:00] VITALS: BP 99/66
[2019-12-14] MEDS: FUROSEMIDE 40MG TABLET PO SCH (08:44)
[2019-12-14] MEDS: ASCORBIC ACID 500 MG TABLET PO SCH (08:44)
[2019-12-14] MEDS: APIXABAN 5 MG TABLET PO SCH ×2 (08:44→17:24)
[2019-12-14] MEDS: LISINOPRIL 40MG TABLET PO SCH (08:45)
[2019-12-14] MEDS: AMLODIPINE 10MG TABLET PO SCH (08:45)
[2019-12-14] MEDS: HYDROCODONE/ACETAMINOPHEN 5/325MG TABLET PO PRN ×2 (08:50→17:33)
[2019-12-14 11:06] LABS: BG BASE EXCESS 3.9 mmol/L (-2.0-2.0); BG CARBOXYHEMOGLOBIN 0.7 % (0.5-1.5); BG DEOXYHEMOGLOBIN 2.4 % (0.0-5.0); BG FRACTION INSPIRED OXYGEN 28; BG HCO3 ACT 29.6 mmol/L (22.0-26.0); BG METHEMOGLOBIN 0.3 % (0.0-1.5); BG OXYGEN SATURATION 97.6 % (92.0-98.5); BG OXYHEMOGLOBIN 96.6 % (94.0-97.0); BG PCO2 49.4 mmHg (35.0-45.0); BG PH 7.396 (7.350-7.450); BG PO2 102.9 mmHg (75.0-100.0); BG SAMPLE SITE RIGHT RADIAL; BG TOTAL HEMOGLOBIN 13.2 g/dL (12.0-18.0); BG VENT MODE NASAL CANNULA
[2019-12-14 12:12] LABS: PROTHROMBIN TIME 10.7 sec (9.6-11.0)
[2019-12-14 12:30] VITALS: BP 98/64
[2019-12-14] MEDS: BLOOD SUGAR DIAGNOSTIC STRIP TEST SCH ×3 (13:01→20:59)
[2019-12-14 16:25] VITALS: BP 136/90
[2019-12-14 20:00] VITALS: BP 106/65
[2019-12-14] MEDS: TRAZODONE HCL 50MG TABLET PO SCH (20:58)
[2019-12-14] MEDS: GABAPENTIN 300MG CAPSULE PO SCH (20:58)
[2019-12-14] MEDS: ATORVASTATIN CALCIUM 40MG TABLET PO SCH (20:59)
[2019-12-14] MEDS ORDERED: IOHEXOL-350 100 ML BOTTLE ONE (22:50)
[2019-12-15] VITALS: BP 111/69
[2019-12-15 04:00] VITALS: BP 104/66
[2019-12-15] MEDS: BLOOD SUGAR DIAGNOSTIC STRIP TEST SCH ×2 (07:20→12:20)
[2019-12-15 08:00] VITALS: BP 110/68
[2019-12-15] MEDS: ASCORBIC ACID 500 MG TABLET PO SCH (08:52)
[2019-12-15] MEDS: LISINOPRIL 40MG TABLET PO SCH (08:52)
[2019-12-15] MEDS: FUROSEMIDE 40MG TABLET PO SCH (08:52)
[2019-12-15] MEDS: HYDROCODONE/ACETAMINOPHEN 5/325MG TABLET PO PRN ×2 (08:53→16:37)
[2019-12-15] MEDS: AMLODIPINE 5MG TABLET PO SCH ×2 (08:53→20:57)
[2019-12-15] MEDS: APIXABAN 5 MG TABLET PO SCH ×2 (08:53→16:33)
[2019-12-15 12:00] VITALS: BP 104/60
[2019-12-15 16:00] VITALS: BP 110/64
[2019-12-15 16:37] VITALS: BP 110/64
[2019-12-15] MEDS: ATORVASTATIN CALCIUM 40MG TABLET PO SCH (20:56)
[2019-12-15] MEDS: GABAPENTIN 300MG CAPSULE PO SCH (20:56)
[2019-12-15] MEDS: TRAZODONE HCL 50MG TABLET PO SCH (20:57)
[2019-12-16] MEDS: FUROSEMIDE 40MG TABLET PO SCH (09:34)
[2019-12-16] MEDS: ASCORBIC ACID 500 MG TABLET PO SCH (09:34)
[2019-12-16] MEDS: LISINOPRIL 40MG TABLET PO SCH (09:34)
[2019-12-16] MEDS: AMLODIPINE 5MG TABLET PO SCH (09:34)
[2019-12-16] MEDS: APIXABAN 5 MG TABLET PO SCH (09:34)
[2019-12-16] MEDS: HYDROCODONE/ACETAMINOPHEN 5/325MG TABLET PO PRN (09:38)
[2019-12-16 09:43] LABS: BG BASE EXCESS 0.5 mmol/L (-2.0-2.0); BG CARBOXYHEMOGLOBIN 0.4 % (0.5-1.5); BG DEOXYHEMOGLOBIN 2.6 % (0.0-5.0); BG FRACTION INSPIRED OXYGEN 21; BG HCO3 ACT 25.5 mmol/L (22.0-26.0); BG METHEMOGLOBIN 0.3 % (0.0-1.5); BG OXYGEN SATURATION 97.4 % (92.0-98.5); BG OXYHEMOGLOBIN 96.7 % (94.0-97.0); BG PCO2 42.4 mmHg (35.0-45.0); BG PH 7.397 (7.350-7.450); BG PO2 101.7 mmHg (75.0-100.0); BG SAMPLE SITE RIGHT RADIAL; BG TOTAL HEMOGLOBIN 13.2 g/dL (12.0-18.0); BG VENT MODE ROOM AIR
== END 2019-12-16 07:30 | disposition home health service (06) | DRG 206 ==
LOC: ER 15:19 → 6WST 16:41 → EDBEDREQ 16:45 → EDBEDREQTM 16:45 → ENRESERV 12-13 07:37
PROVIDERS: ADMIT Hospitalist; ATTEND Hospitalist
DX: M94.0 Chondrocostal junction syndrome [Tietze] (principal); G45.9 Transient cerebral ischemic attack, unspecified; Z68.43 Body mass index [BMI] 50.0-59.9, adult; G81.91 Hemiplegia, unspecified affecting right dominant side; R47.01 Aphasia; D68.69 Other thrombophilia; E66.01 Morbid (severe) obesity due to excess calories; E78.5 Hyperlipidemia, unspecified; I11.0 Hypertensive heart disease with heart failure; G51.0 Bell's palsy; G43.909 Migraine, unspecified, not intractable, without status migrainosus; G62.9 Polyneuropathy, unspecified; I25.10 Atherosclerotic heart disease of native coronary artery without angina pectoris; I50.9 Heart failure, unspecified; Z79.01 Long term (current) use of anticoagulants; Z86.711 Personal history of pulmonary embolism; Z90.710 Acquired absence of both cervix and uterus; Z86.718 Personal history of other venous thrombosis and embolism; Z95.810 Presence of automatic (implantable) cardiac defibrillator; Z79.899 Other long term (current) drug therapy
CPT/HCPCS: 36415; 36600; 70496; 70498; 71045; 80053; 80061; 80305; 80320; 81003; 82375; 82550; 82805; 82962; 83735; 83880; 84132; 84484; 85025; 85379; 85384; 92523; 92610; 93005; 93306; 93970; 96374; 97116; 97162; 97165; 97530; 99285; J2060; J2270; J2405; Q9967; G0480

== ENCOUNTER 2020-04-26 19:38 | Inpatient (IN) | payer MEDICARE, MEDICAID ==
[~2020-04-26] VITALS: Ht 163.8 cm; Wt 152.9 kg
[2020-04-26 21:05] LABS: BASOPHILS % 0.4 % (0.0-2.0); EOSINOPHILS % 1.1 % (0.0-5.0); HEMATOCRIT. 33.5 % (36.0-48.0); HEMOGLOBIN. 11.3 g/dL (12.0-16.0); LYMPHOCYTES % 21.5 % (20.0-50.0); MEAN CORPUSCULAR HEMOGLOBIN 28.3 pg (28.0-32.0); MEAN CORPUSCULAR VOLUME 83.8 fL (81.0-99.0); MEAN PLATELET VOLUME 7.1 fl (7.4-10.4); MONOCYTES % 5.8 % (2.0-8.0); NEUTROPHILS % 71.2 % (40.0-76.0); PLATELET 267 x1000/uL (130-400); RED BLOOD CELL COUNT 3.99 mill/uL (4.2-5.4); RED CELL DISTRIBUTION WIDTH 14.5 % (11.6-14.6)
[2020-04-26 21:12] LABS: CHLORIDE 109 mEq/L (98-107)
[2020-04-26] MEDS ORDERED: NITROGLYCERIN 0.4MG TABLET SL SL PRN (22:00)
[2020-04-26] MEDS ORDERED: ASPIRIN 325MG EC TABLET PO ONE (22:00)
[2020-04-26] MEDS ORDERED: ONDANSETRON HCL 4MG/2ML INJ IV STA (22:08)
[2020-04-26] MEDS ORDERED: MORPHINE SULFATE 4 MG/ML CPJ (NOT FOR IM USE) IV STA ×2 (22:08→23:51)
[2020-04-26 22:15] LABS: CLARITY URINE CLEAR (CLEAR); COLOR URINE YELLOW (YELLOW); KETONES URINE TRACE (NEGATIVE); LEUKOCYTE ESTERASE URINE TRACE (NEGATIVE); NITRITE URINE NEGATIVE (NEGATIVE); OCCULT BLOOD URINE NEGATIVE (NEGATIVE); PH URINE 6.5 (4.5-8.0); PROTEIN URINE NEGATIVE (NEGATIVE)
[2020-04-27] VITALS (7 sets, daily range): BP systolic 99–148; BP diastolic 55–74
[2020-04-27] MEDS ORDERED: SPIR25TA6 PO (01:46)
[2020-04-27] MEDS ORDERED: HYDR25TA PO (01:46)
[2020-04-27] MEDS ORDERED: ASPI-1158 PO (01:46)
[2020-04-27] MEDS ORDERED: APIX5TAB PO (01:48)
[2020-04-27] MEDS: NITROGLYCERIN 0.4MG TABLET SL SL PRN ×3 (06:22→06:38)
[2020-04-27 07:37] LABS: BASOPHILS % 0.4 % (0.0-2.0); EOSINOPHILS % 2.1 % (0.0-5.0); HEMATOCRIT. 31.4 % (36.0-48.0); HEMOGLOBIN. 10.5 g/dL (12.0-16.0); LYMPHOCYTES % 28.4 % (20.0-50.0); MEAN CORPUSCULAR HEMOGLOBIN 28.3 pg (28.0-32.0); MEAN CORPUSCULAR VOLUME 84.2 fL (81.0-99.0); MEAN PLATELET VOLUME 7.7 fl (7.4-10.4); MONOCYTES % 6.1 % (2.0-8.0); PLATELET 248 x1000/uL (130-400); RED BLOOD CELL COUNT 3.73 mill/uL (4.2-5.4); RED CELL DISTRIBUTION WIDTH 14.2 % (11.6-14.6)
[2020-04-27 08:06] LABS: CHLORIDE 109 mEq/L (98-107)
[2020-04-27 08:15] LABS: CREATINE KINASE 153 IU/L (26-192); HDL CHOLESTEROL 46 mg/dL (40-59)
[2020-04-27] MEDS ORDERED: ACETAMINOPHEN 325MG TABLET PO PRN (08:15)
[2020-04-27 08:16] LABS: LDL CHOLESTEROL 128 mg/dL (5-100)
[2020-04-27 08:20] LABS: CREATINE KINASE MB FRACTION 1.1 ng/mL (0.5-3.6)
[2020-04-27] MEDS: PANTOPRAZOLE SODIUM 40 MG/VIAL IV SCH (08:27)
[2020-04-27] MEDS: ASPIRIN 81MG TABLET PO SCH (08:27)
[2020-04-27] MEDS ORDERED: ENOXAPARIN 40MG/0.4ML SYR SUBCUT SCH ×2 (09:00)
[2020-04-27] MEDS ORDERED: ASPIRIN 81MG EC TABLET PO SCH (11:15)
[2020-04-27] MEDS: CLOPIDOGREL 75MG TABLET PO SCH ×2 (11:15→12:19)
[2020-04-27] MEDS ORDERED: TRAMADOL 50MG TABLET PO PRN (12:00)
[2020-04-27] MEDS: HYDROCHLOROTHIAZIDE 25MG TABLET PO SCH (12:19)
[2020-04-27] MEDS: FUROSEMIDE 40MG/4ML VIAL IVP SCH (12:19)
[2020-04-27] MEDS: BENAZEPRIL 10MG TABLET PO SCH (12:19)
[2020-04-27] MEDS: MORPHINE SULFATE 2 MG/ML CPJ (NOT FOR IM USE) IV PRN ×2 (12:20→17:18)
[2020-04-27] MEDS ORDERED: POTASSIUM CHLORIDE 20MEQ TABLET SR PO SCH (13:00)
[2020-04-27] MEDS: APIXABAN 5 MG TABLET PO SCH (17:18)
[2020-04-27] MEDS ORDERED: GABAPENTIN 300MG CAPSULE PO SCH (21:00)
[2020-04-27] MEDS ORDERED: TRAZODONE HCL 50MG TABLET PO SCH (21:00)
[2020-04-27] MEDS ORDERED: ATORVASTATIN CALCIUM 20MG TABLET PO SCH (21:00)
[2020-04-28] VITALS: BP 117/69
[2020-04-28 04:00] VITALS: BP 102/51
[2020-04-28 08:00] VITALS: BP 148/115
[2020-04-28] MEDS: MORPHINE SULFATE 2 MG/ML CPJ (NOT FOR IM USE) IV PRN (08:18)
[2020-04-28] MEDS: FUROSEMIDE 40MG/4ML VIAL IVP SCH (08:22)
[2020-04-28] MEDS: PANTOPRAZOLE SODIUM 40 MG/VIAL IV SCH (08:22)
[2020-04-28] MEDS: BENAZEPRIL 10MG TABLET PO SCH (08:23)
[2020-04-28] MEDS: ASPIRIN 81MG TABLET PO SCH (08:23)
[2020-04-28] MEDS: HYDROCHLOROTHIAZIDE 25MG TABLET PO SCH (08:23)
[2020-04-28] MEDS: CLOPIDOGREL 75MG TABLET PO SCH (08:23)
[2020-04-28] MEDS: APIXABAN 5 MG TABLET PO SCH (08:24)
[2020-04-28] MEDS ORDERED: AMLODIPINE 10MG TABLET PO SCH (09:00)
[2020-04-28] MEDS ORDERED: SPIRONOLACTONE 25MG TABLET PO SCH (09:00)
[2020-04-28 11:29] VITALS: BP 139/67
[2020-04-28 12:00] VITALS: BP 139/67
== END 2020-04-28 12:30 | disposition home or self-care (01) | DRG 205 ==
LOC: ER 19:38 → EDBEDREQ 22:34 → EDBEDREQTM 22:34 → 5WST 22:38 → ENRESERV 22:56
PROVIDERS: ADMIT Hospitalist; ATTEND Hospitalist
DX: M94.0 Chondrocostal junction syndrome [Tietze] (principal); I50.33 Acute on chronic diastolic (congestive) heart failure; D68.59 Other primary thrombophilia; Z68.43 Body mass index [BMI] 50.0-59.9, adult; E78.5 Hyperlipidemia, unspecified; E66.01 Morbid (severe) obesity due to excess calories; I25.10 Atherosclerotic heart disease of native coronary artery without angina pectoris; G62.9 Polyneuropathy, unspecified; I11.0 Hypertensive heart disease with heart failure; Z86.73 Personal history of transient ischemic attack (TIA), and cerebral infarction without residual deficits; Z79.01 Long term (current) use of anticoagulants; Z79.84 Long term (current) use of oral hypoglycemic drugs; Z79.899 Other long term (current) drug therapy; Z95.0 Presence of cardiac pacemaker; Z79.82 Long term (current) use of aspirin; Z79.02 Long term (current) use of antithrombotics/antiplatelets; Z86.711 Personal history of pulmonary embolism; Z86.718 Personal history of other venous thrombosis and embolism
CPT/HCPCS: 36415; 71045; 80048; 80053; 80061; 81003; 82550; 82553; 83880; 84484; 85025; 85379; 93005; 93970; 99285; C9113; J1650; J1940; J2270; J2405

== ENCOUNTER 2020-05-20 15:55 | Inpatient (IN) | payer MEDICARE, MEDICAID ==
[~2020-05-20] VITALS: Ht 162.6 cm; Wt 131.5 kg
[~2020-05-20 15:55] MED LIST changes: +ASPI-1158 PO; +HYDR25TA PO; +SPIR25TA6 PO
[2020-05-20] MEDS ORDERED: ONDANSETRON HCL 4MG/2ML INJ IV STA (16:55)
[2020-05-20] MEDS ORDERED: MORPHINE SULFATE 4 MG/ML CPJ (NOT FOR IM USE) IV STA (16:55)
[2020-05-20] MEDS ORDERED: SODIUM CHLORIDE 0.9% 1,000 ML IV ONE (16:55)
[2020-05-20 17:34] LABS: BASOPHILS % 0.9 % (0.0-2.0); EOSINOPHILS % 4.7 % (0.0-5.0); HEMATOCRIT. 32.6 % (36.0-48.0); HEMOGLOBIN. 10.8 g/dL (12.0-16.0); LYMPHOCYTES % 24.2 % (20.0-50.0); MEAN CORPUSCULAR HEMOGLOBIN 27.8 pg (28.0-32.0); MEAN CORPUSCULAR VOLUME 83.8 fL (81.0-99.0); MEAN PLATELET VOLUME 7.6 fl (7.4-10.4); MONOCYTES % 5.4 % (2.0-8.0); NEUTROPHILS % 64.8 % (40.0-76.0); PLATELET 360 x1000/uL (130-400); RED BLOOD CELL COUNT 3.89 mill/uL (4.2-5.4); RED CELL DISTRIBUTION WIDTH 13.9 % (11.6-14.6)
[2020-05-20 17:43] LABS: CHLORIDE 109 mEq/L (98-107)
[2020-05-20 17:48] LABS: ETHANOL BLOOD < 10 mg/dL
[2020-05-20 17:55] LABS: PARTIAL THROMBOPLASTIN TIME 26.7 sec (23.4-31.0); PROTHROMBIN TIME 10.3 sec (9.6-11.0)
[2020-05-20 19:51] LABS: CLARITY URINE CLEAR (CLEAR); COLOR URINE YELLOW (YELLOW); KETONES URINE NEGATIVE (NEGATIVE); LEUKOCYTE ESTERASE URINE NEGATIVE (NEGATIVE); NITRITE URINE NEGATIVE (NEGATIVE); OCCULT BLOOD URINE NEGATIVE (NEGATIVE); PROTEIN URINE NEGATIVE (NEGATIVE); SPECIFIC GRAVITY URINE 1.009 (1.005-1.030); UROBILINOGEN URINE 0.2 E.U./dL (0.2-1.0)
[2020-05-20] MEDS ORDERED: VANCOMYCIN 1 G PREMIX 200 ML IV ONE (20:30)
[2020-05-20] MEDS ORDERED: PIPERACILLIN/TAZ 3.375G PREMIX 50 ML IV ONE (20:30)
[2020-05-20 20:32] LABS: *AMPHETAMINES SCREEN URINE NEGATIVE (NEGATIVE); *BARBITURATES SCREEN URINE NEGATIVE (NEGATIVE); *BENZODIAZEPINES SCREEN URINE NEGATIVE (NEGATIVE)
[2020-05-20 20:33] LABS: *COCAINE SCREEN URINE NEGATIVE (NEGATIVE); CANNABINOID URINE SCREEN NEGATIVE (NEGATIVE); METHADONE URINE SCREEN NEGATIVE (NEGATIVE); OPIATES URINE SCREEN PRESUMTIVE POSITIVE (NEGATIVE); PHENCYCLIDINE URINE SCREEN NEGATIVE (NEGATIVE)
[2020-05-20] MEDS ORDERED: MORPHINE SULFATE 4 MG/ML CPJ (NOT FOR IM USE) IV ONE (21:15)
[2020-05-21] VITALS (13 sets, daily range): BP systolic 133–166; BP diastolic 86–110
[2020-05-21] MEDS ORDERED: ONDANSETRON HCL 4MG/2ML INJ IV PRN (05:30)
[2020-05-21] MEDS: MORPHINE SULFATE 4 MG/ML CPJ (NOT FOR IM USE) IV PRN ×3 (05:37→22:00)
[2020-05-21] MEDS ORDERED: HYDROCODONE/ACETAMINOPHEN 10/325MG TABLET PO PRN (09:30)
[2020-05-21] MEDS: AMLODIPINE 10MG TABLET PO SCH (11:34)
[2020-05-21] MEDS: CLOPIDOGREL 75MG TABLET PO SCH (11:34)
[2020-05-21] MEDS: FUROSEMIDE 40MG TABLET PO SCH (11:34)
[2020-05-21] MEDS: HYDROCHLOROTHIAZIDE 25MG TABLET PO SCH (11:34)
[2020-05-21] MEDS: APIXABAN 5 MG TABLET PO SCH ×2 (15:32→19:56)
[2020-05-21] MEDS: SPIRONOLACTONE 25MG TABLET PO SCH (17:00)
[2020-05-21] MEDS ORDERED: GABAPENTIN 300MG CAPSULE PO SCH (21:00)
[2020-05-21] MEDS ORDERED: ATORVASTATIN CALCIUM 20MG TABLET PO SCH (21:00)
[2020-05-22] VITALS (13 sets, daily range): BP systolic 109–155; BP diastolic 71–110
[2020-05-22] MEDS: MORPHINE SULFATE 4 MG/ML CPJ (NOT FOR IM USE) IV PRN ×2 (05:11→14:18)
[2020-05-22 06:55] LABS: CHLORIDE 103 mEq/L (98-107)
[2020-05-22 07:18] LABS: BASOPHILS % 0.6 % (0.0-2.0); HEMATOCRIT. 32.2 % (36.0-48.0); HEMOGLOBIN. 10.7 g/dL (12.0-16.0); LYMPHOCYTES % 17.1 % (20.0-50.0); MEAN CORPUSCULAR HEMOGLOBIN 27.5 pg (28.0-32.0); MEAN PLATELET VOLUME 7.4 fl (7.4-10.4); MONOCYTES % 5.9 % (2.0-8.0); NEUTROPHILS % 72.4 % (40.0-76.0); PLATELET 319 x1000/uL (130-400); RED BLOOD CELL COUNT 3.88 mill/uL (4.2-5.4); RED CELL DISTRIBUTION WIDTH 13.7 % (11.6-14.6)
[2020-05-22] MEDS ORDERED: ACETAMINOPHEN 325MG TABLET PO PRN (08:30)
[2020-05-22] MEDS: FUROSEMIDE 40MG TABLET PO SCH (09:00)
[2020-05-22] MEDS ORDERED: POTASSIUM CHLORIDE 20MEQ TABLET SR PO SCH (09:00)
[2020-05-22] MEDS: AMLODIPINE 10MG TABLET PO SCH (09:03)
[2020-05-22] MEDS: HYDROCHLOROTHIAZIDE 25MG TABLET PO SCH (09:04)
[2020-05-22] MEDS: APIXABAN 5 MG TABLET PO SCH (09:05)
[2020-05-22] MEDS: SPIRONOLACTONE 25MG TABLET PO SCH ×2 (09:05→17:00)
[2020-05-22] MEDS: CLOPIDOGREL 75MG TABLET PO SCH (09:06)
[2020-05-22] MEDS ORDERED: LACTULOSE 20G/30ML UDC PO SCH (12:15)
[2020-05-22] MEDS ORDERED: DOCUSATE SODIUM 250MG CAPSULE PO SCH (12:15)
== END 2020-05-22 19:10 | disposition home or self-care (01) | DRG 947 ==
LOC: ER 15:55 → MICUSO 20:28 → 3WST 05-21 08:22
PROVIDERS: ADMIT Internal Medicine; ATTEND Internal Medicine
DX: G89.18 Other acute postprocedural pain (principal); I50.33 Acute on chronic diastolic (congestive) heart failure; Z68.42 Body mass index [BMI] 45.0-49.9, adult; I11.0 Hypertensive heart disease with heart failure; E66.9 Obesity, unspecified; E78.5 Hyperlipidemia, unspecified; Z86.711 Personal history of pulmonary embolism; Z86.718 Personal history of other venous thrombosis and embolism; Z86.73 Personal history of transient ischemic attack (TIA), and cerebral infarction without residual deficits; Z95.0 Presence of cardiac pacemaker; Z90.710 Acquired absence of both cervix and uterus; Z90.49 Acquired absence of other specified parts of digestive tract; Z79.01 Long term (current) use of anticoagulants; Z79.82 Long term (current) use of aspirin; Z79.899 Other long term (current) drug therapy
CPT/HCPCS: 36415; 71045; 74176; 80048; 80053; 80305; 80320; 81003; 83880; 84484; 85025; 93005; 93970; 96365; 97162; 99285; J2270; J2405; J2543; J3370; J7030; G0480

== ENCOUNTER 2022-10-27 09:39 | Inpatient (IN) | payer MEDICARE, MEDICAID ==
[~2022-10-27] VITALS: Ht 162.6 cm; Wt 153.3 kg
[~2022-10-27 09:39] MED LIST changes: +ACET-2708 PO; -ASPI-1158 PO; +ASPI-1406 PO; -BENA40TA9 PO; +BENA40TA91 PO; -GABA-531 PO; +GABA-532 PO; -HYDR25TA PO; +IBUP-2030 PO
[2022-10-27] MEDS ORDERED: SODIUM CHLORIDE 0.9% 1,000 ML IV ONE (11:15)
[2022-10-27 14:01] LABS: BASOPHILS % 0.2 % (0.0-2.0); CHLORIDE 107 mEq/L (98-107); EOSINOPHILS % 0.9 % (0.0-5.0); HEMATOCRIT. 37.3 % (36.0-48.0); HEMOGLOBIN. 11.9 g/dL (12.0-16.0); LYMPHOCYTES % 21.9 % (20.0-50.0); MEAN CORPUSCULAR HEMOGLOBIN 27.1 pg (28.0-32.0); MEAN CORPUSCULAR VOLUME 84.6 fL (81.0-99.0); MEAN PLATELET VOLUME 7.8 fl (7.4-10.4); MONOCYTES % 4.9 % (2.0-8.0); NEUTROPHILS % 72.1 % (40.0-76.0); PLATELET 283 x1000/uL (130-400); RED BLOOD CELL COUNT 4.41 mill/uL (4.2-5.4); RED CELL DISTRIBUTION WIDTH 14.8 % (11.6-14.6)
[2022-10-27] MEDS ORDERED: KETOROLAC 15MG/ML VIAL IV ONE (14:45)
[2022-10-27 15:31] LABS: CLARITY URINE CLEAR (CLEAR); COLOR URINE YELLOW (YELLOW); KETONES URINE NEGATIVE (NEGATIVE); LEUKOCYTE ESTERASE URINE NEGATIVE (NEGATIVE); NITRITE URINE NEGATIVE (NEGATIVE); OCCULT BLOOD URINE NEGATIVE (NEGATIVE); PROTEIN URINE NEGATIVE (NEGATIVE); SPECIFIC GRAVITY URINE 1.012 (1.005-1.030); UROBILINOGEN URINE 0.2 E.U./dL (0.2-1.0)
[2022-10-27 18:17] LABS: PROTHROMBIN TIME 10.4 sec (9.6-11.0)
[2022-10-27] MEDS ORDERED: ENOXAPARIN 40MG/0.4ML SYR SUBCUT SCH (19:00)
[2022-10-27] MEDS ORDERED: DOCUSATE SODIUM 100MG CAPSULE PO PRN (19:00)
[2022-10-27] MEDS ORDERED: MAGNESIUM/ALUMINUM HYDROXIDE/SIMETHICONE 30ML UDC PO PRN (19:00)
[2022-10-27] MEDS ORDERED: NITROGLYCERIN 0.4MG TABLET SL SL PRN (19:00)
[2022-10-27] MEDS ORDERED: ACETAMINOPHEN 325MG TABLET PO PRN (19:00)
[2022-10-27] MEDS ORDERED: ONDANSETRON HCL 4MG/2ML INJ IV PRN (19:00)
[2022-10-27] MEDS ORDERED: IPRATROPIUM/ALBUTEROL 0.5-3(2.5)MG/3ML NEB NEB PRN (19:00)
[2022-10-27] MEDS ORDERED: GUAIFENESIN 200MG/10ML SUGAR FREE UDC PO PRN (19:00)
[2022-10-27] MEDS: AMLODIPINE 10MG TABLET PO SCH (19:13)
[2022-10-27] MEDS: ACETAMINOPHEN 325MG TABLET PO PRN (19:47)
[2022-10-27 20:02] LABS: VITAMIN B12 SERUM 371 pg/mL (211-911)
[2022-10-27 20:05] VITALS: BP 157/74
[2022-10-27 20:10] VITALS: BP 158/74
[2022-10-27] MEDS: ATORVASTATIN CALCIUM 20MG TABLET PO SCH (21:00)
[2022-10-27] MEDS: FAMOTIDINE 20MG TABLET PO SCH (22:02)
[2022-10-27] MEDS: LISINOPRIL 20MG TABLET PO SCH (22:03)
[2022-10-28] VITALS: BP 138/83
[2022-10-28 04:00] VITALS: BP 131/75
[2022-10-28] MEDS: ACETAMINOPHEN 325MG TABLET PO PRN (05:24)
[2022-10-28] MEDS: APIXABAN 5 MG TABLET PO SCH ×2 (05:24→17:05)
[2022-10-28 08:00] VITALS: BP 155/87
[2022-10-28] MEDS: AMLODIPINE 10MG TABLET PO SCH (08:45)
[2022-10-28] MEDS: ASPIRIN 81MG EC TABLET PO SCH (08:45)
[2022-10-28] MEDS: CLOPIDOGREL 75MG TABLET PO SCH (08:45)
[2022-10-28] MEDS: FAMOTIDINE 20MG TABLET PO SCH ×2 (08:45→20:58)
[2022-10-28] MEDS: LISINOPRIL 20MG TABLET PO SCH ×2 (08:45→21:00)
[2022-10-28 10:09] LABS: BASOPHILS % 0.4 % (0.0-2.0); EOSINOPHILS % 0.9 % (0.0-5.0); HEMATOCRIT. 38.8 % (36.0-48.0); HEMOGLOBIN. 12.5 g/dL (12.0-16.0); MEAN CORPUSCULAR HEMOGLOBIN 27.1 pg (28.0-32.0); MEAN CORPUSCULAR VOLUME 84.3 fL (81.0-99.0); MEAN PLATELET VOLUME 7.7 fl (7.4-10.4); MONOCYTES % 5.3 % (2.0-8.0); NEUTROPHILS % 71.4 % (40.0-76.0); PLATELET 297 x1000/uL (130-400); RED CELL DISTRIBUTION WIDTH 15.3 % (11.6-14.6)
[2022-10-28 10:17] LABS: CHLORIDE 106 mEq/L (98-107)
[2022-10-28 10:35] LABS: CREATINE KINASE 118 IU/L (26-192); CREATINE KINASE MB FRACTION 1.5 ng/mL (0.5-3.6); ETHANOL BLOOD < 10 mg/dL; HDL CHOLESTEROL 52 mg/dL (40-59); LDL CHOLESTEROL 102 mg/dL (5-100); PHOSPHORUS 3.3 mg/dL (2.5-4.9); T4 FREE 0.94 ng/dL (0.76-1.46)
[2022-10-28 12:00] VITALS: BP 155/82
[2022-10-28 16:00] VITALS: BP 164/87
[2022-10-28] MEDS ORDERED: IPRATROPIUM BROMIDE (0.02%) 0.5MG/2.5ML NEB HHN PRN (16:45)
[2022-10-28] MEDS ORDERED: ALBUTEROL (0.083%) 2.5MG/3ML NEB HHN PRN (16:45)
[2022-10-28] MEDS: CLONIDINE 0.1MG TABLET PO PRN (17:06)
[2022-10-28 20:00] VITALS: BP 134/87
[2022-10-28] MEDS: ATORVASTATIN CALCIUM 20MG TABLET PO SCH (21:00)
[2022-10-29] VITALS: BP 135/72
[2022-10-29 04:00] VITALS: BP 151/90
[2022-10-29] MEDS: APIXABAN 5 MG TABLET PO SCH (05:39)
[2022-10-29 08:00] VITALS: BP 165/91
[2022-10-29] MEDS: CLOPIDOGREL 75MG TABLET PO SCH (09:24)
[2022-10-29] MEDS: FAMOTIDINE 20MG TABLET PO SCH (09:25)
[2022-10-29] MEDS: AMLODIPINE 10MG TABLET PO SCH (09:25)
[2022-10-29] MEDS: LISINOPRIL 20MG TABLET PO SCH (09:25)
[2022-10-29] MEDS: ASPIRIN 81MG EC TABLET PO SCH (09:25)
[2022-10-29 12:00] VITALS: BP 168/98
[2022-10-29 12:30] VITALS: BP 165/91
[2022-10-29] MEDS: CLONIDINE 0.1MG TABLET PO PRN (13:36)
== END 2022-10-29 14:20 | disposition home or self-care (01) | DRG 69 ==
LOC: ER 09:39 → 7EST 18:24 → EDBEDREQ 18:31 → EDBEDREQTM 18:31 → ENRESERV 19:48
PROVIDERS: ADMIT Internal Medicine; ATTEND Internal Medicine
DX: G45.9 Transient cerebral ischemic attack, unspecified (principal); E44.1 Mild protein-calorie malnutrition; M94.0 Chondrocostal junction syndrome [Tietze]; R42 Dizziness and giddiness; E66.01 Morbid (severe) obesity due to excess calories; G47.00 Insomnia, unspecified; G43.909 Migraine, unspecified, not intractable, without status migrainosus; I11.0 Hypertensive heart disease with heart failure; E78.00 Pure hypercholesterolemia, unspecified; H53.8 Other visual disturbances; G40.909 Epilepsy, unspecified, not intractable, without status epilepticus; I50.9 Heart failure, unspecified; I69.344 Monoplegia of lower limb following cerebral infarction affecting left non-dominant side; Z95.0 Presence of cardiac pacemaker; Z79.01 Long term (current) use of anticoagulants; Z68.39 Body mass index [BMI] 39.0-39.9, adult; Z90.49 Acquired absence of other specified parts of digestive tract
CPT/HCPCS: 36415; 71045; 80053; 80061; 80320; 81003; 82550; 82553; 82607; 83036; 83735; 84100; 84145; 84439; 84443; 84484; 85025; 86850; 86900; 93306; 93970; 97162; 99285; J1885; J7030; G0480

== ENCOUNTER 2022-12-02 09:39 | Inpatient (IN) | payer MEDICARE, MEDICAID ==
[2022-12-02] VITALS (34 sets, daily range): BP systolic 90–154; BP diastolic 46–111
[~2022-12-02] VITALS: Ht 165.1 cm; Wt 134.0 kg
[~2022-12-02 09:39] MED LIST changes: -IBUP-2030 PO; -SPIR25TA6 PO; -TRAM50TA3 PO
[2022-12-02] MEDS ORDERED: NICARDIPINE 40MG/200ML PREMIX 200 ML IV PRN (10:00)
[2022-12-02] MEDS ORDERED: ONDANSETRON HCL 4MG/2ML INJ IV ONE (10:00)
[2022-12-02] MEDS ORDERED: IOHEXOL-350 100 ML BOTTLE ONE ×2 (10:26→10:27)
[2022-12-02 10:45] LABS: BASOPHILS % 0.2 % (0.0-2.0); EOSINOPHILS % 0.9 % (0.0-5.0); HEMATOCRIT. 36.5 % (36.0-48.0); LYMPHOCYTES % 18.7 % (20.0-50.0); MEAN CORPUSCULAR HEMOGLOBIN 27.7 pg (28.0-32.0); MONOCYTES % 5.6 % (2.0-8.0); NEUTROPHILS % 74.6 % (40.0-76.0); PLATELET 296 x1000/uL (130-400); RED BLOOD CELL COUNT 4.34 mill/uL (4.2-5.4); RED CELL DISTRIBUTION WIDTH 15.6 % (11.6-14.6)
[2022-12-02 10:55] LABS: D-DIMER 0.49 mg/L FEU (<0.50); PROTHROMBIN TIME 10.6 sec (9.6-11.0)
[2022-12-02] MEDS ORDERED: ASPIRIN 81MG TABLET PO ONE ×2 (11:00→15:00)
[2022-12-02 11:09] LABS: CHLORIDE 111 mEq/L (98-107)
[2022-12-02 11:18] LABS: CREATINE KINASE 136 IU/L (26-192); ETHANOL BLOOD < 10 mg/dL
[2022-12-02 11:51] LABS: CLARITY URINE CLEAR (CLEAR); COLOR URINE YELLOW (YELLOW); KETONES URINE NEGATIVE (NEGATIVE); LEUKOCYTE ESTERASE URINE NEGATIVE (NEGATIVE); NITRITE URINE NEGATIVE (NEGATIVE); OCCULT BLOOD URINE NEGATIVE (NEGATIVE); PH URINE 7.5 (4.5-8.0); PROTEIN URINE NEGATIVE (NEGATIVE); SPECIFIC GRAVITY URINE 1.035 (1.005-1.030); UROBILINOGEN URINE 0.2 E.U./dL (0.2-1.0)
[2022-12-02 13:04] LABS: *AMPHETAMINES SCREEN URINE NEGATIVE (NEGATIVE); *BARBITURATES SCREEN URINE NEGATIVE (NEGATIVE); *BENZODIAZEPINES SCREEN URINE NEGATIVE (NEGATIVE); *COCAINE SCREEN URINE NEGATIVE (NEGATIVE); CANNABINOID URINE SCREEN NEGATIVE (NEGATIVE); METHADONE URINE SCREEN NEGATIVE (NEGATIVE); OPIATES URINE SCREEN NEGATIVE (NEGATIVE); PHENCYCLIDINE URINE SCREEN NEGATIVE (NEGATIVE)
[2022-12-02] MEDS ORDERED: MORPHINE SULFATE 4 MG/ML CPJ (NOT FOR IM USE) IV ONE (13:15)
[2022-12-02] MEDS ORDERED: ACETAMINOPHEN 325MG TABLET PO PRN ×2 (14:15)
[2022-12-02] MEDS ORDERED: CLONIDINE 0.1MG TABLET PO PRN (14:15)
[2022-12-02] MEDS ORDERED: IPRATROPIUM/ALBUTEROL 0.5-3(2.5)MG/3ML NEB HHN PRN (14:15)
[2022-12-02] MEDS ORDERED: ONDANSETRON HCL 4MG/2ML INJ IV PRN (14:15)
[2022-12-02] MEDS ORDERED: HYDROCODONE/ACETAMINOPHEN 5/325MG TABLET PO PRN (14:15)
[2022-12-02] MEDS ORDERED: NALOXONE HCL 0.4MG/ML VIAL IV PRN (14:30)
[2022-12-02] MEDS: CLOPIDOGREL 75MG TABLET PO SCH (17:20)
[2022-12-02] MEDS: APIXABAN 5 MG TABLET PO SCH (17:21)
[2022-12-02] MEDS: PANTOPRAZOLE SODIUM 40 MG/VIAL IV SCH (17:21)
[2022-12-02] MEDS: ASPIRIN 81MG TABLET PO SCH (17:21)
[2022-12-02] MEDS: FUROSEMIDE 40MG TABLET PO SCH (17:22)
[2022-12-02] MEDS ORDERED: NICARDIPINE 50 MG in SODIUM CHLORIDE 0.9% 230 ML IV PRN (17:30)
[2022-12-02] MEDS ORDERED: APIXABAN 5 MG TABLET PO SCH (18:00)
[2022-12-02 18:18] LABS: PHOSPHORUS 2.9 mg/dL (2.5-4.9); T4 FREE 0.85 ng/dL (0.76-1.46)
[2022-12-02 18:38] LABS: FOLIC ACID (FOLATE) SERUM 12.7 ng/mL (>5.38)
[2022-12-02] MEDS: HYDROCODONE/ACETAMINOPHEN 7.5/325MG TABLET PO PRN (19:39)
[2022-12-02] MEDS: ATORVASTATIN CALCIUM 40MG TABLET PO SCH (20:34)
[2022-12-02] MEDS ORDERED: MORPHINE SULFATE 2 MG/ML CPJ (NOT FOR IM USE) IV NR (21:00)
[2022-12-02] MEDS ORDERED: AMLODIPINE 5MG TABLET PO SCH (21:00)
[2022-12-03] VITALS (34 sets, daily range): BP systolic 105–155; BP diastolic 40–97
[2022-12-03] MEDS: HYDROCODONE/ACETAMINOPHEN 7.5/325MG TABLET PO PRN ×4 (05:24→21:28)
[2022-12-03] MEDS: APIXABAN 5 MG TABLET PO SCH ×2 (05:25→19:05)
[2022-12-03] MEDS: PANTOPRAZOLE SODIUM 40 MG/VIAL IV SCH (09:07)
[2022-12-03] MEDS: ASPIRIN 81MG TABLET PO SCH (09:07)
[2022-12-03] MEDS: CLOPIDOGREL 75MG TABLET PO SCH (09:08)
[2022-12-03] MEDS: FUROSEMIDE 40MG TABLET PO SCH (09:08)
[2022-12-03] MEDS: AMLODIPINE 5MG TABLET PO SCH ×2 (09:08→21:28)
[2022-12-03] MEDS: LEVETIRACETAM 500MG TABLET PO SCH ×2 (09:08→21:27)
[2022-12-03 09:52] LABS: BASOPHILS % 0.3 % (0.0-2.0); EOSINOPHILS % 1.3 % (0.0-5.0); HEMATOCRIT. 35.5 % (36.0-48.0); HEMOGLOBIN. 11.8 g/dL (12.0-16.0); LYMPHOCYTES % 21.3 % (20.0-50.0); MEAN CORPUSCULAR HEMOGLOBIN 27.7 pg (28.0-32.0); MEAN CORPUSCULAR VOLUME 83.4 fL (81.0-99.0); MEAN PLATELET VOLUME 7.6 fl (7.4-10.4); MONOCYTES % 6.4 % (2.0-8.0); NEUTROPHILS % 70.7 % (40.0-76.0); PLATELET 263 x1000/uL (130-400); RED BLOOD CELL COUNT 4.26 mill/uL (4.2-5.4); RED CELL DISTRIBUTION WIDTH 15.2 % (11.6-14.6)
[2022-12-03 11:25] LABS: CHLORIDE 108 mEq/L (98-107)
[2022-12-03 11:49] LABS: CREATINE KINASE MB FRACTION < 1.0 ng/mL (0.5-3.6)
[2022-12-03] MEDS: CARVEDILOL 6.25 MG TABLET PO SCH (21:28)
[2022-12-03] MEDS: ATORVASTATIN CALCIUM 40MG TABLET PO SCH (21:28)
[2022-12-04] VITALS: BP 137/77
[2022-12-04 04:00] VITALS: BP 130/75
[2022-12-04] MEDS: APIXABAN 5 MG TABLET PO SCH ×2 (06:03→19:27)
[2022-12-04 08:00] VITALS: BP_SYST 130; BP_SYST 134; BP_DIAS 81; BP_DIAS 93
[2022-12-04] MEDS: FUROSEMIDE 40MG TABLET PO SCH (10:05)
[2022-12-04 10:07] VITALS: BP 134/93
[2022-12-04] MEDS: HYDROCODONE/ACETAMINOPHEN 7.5/325MG TABLET PO PRN ×2 (10:07→19:26)
[2022-12-04] MEDS: PANTOPRAZOLE SODIUM 40 MG/VIAL IV SCH (10:11)
[2022-12-04] MEDS: AMLODIPINE 5MG TABLET PO SCH (10:12)
[2022-12-04] MEDS: CARVEDILOL 6.25 MG TABLET PO SCH (10:12)
[2022-12-04] MEDS: CLOPIDOGREL 75MG TABLET PO SCH (10:12)
[2022-12-04 12:00] VITALS: BP 130/81
[2022-12-04] MEDS ORDERED: IOHEXOL-300 100 ML BOTTLE ONE (13:54)
[2022-12-04] MEDS ORDERED: IOHEXOL-350 100 ML BOTTLE ONE (13:55)
[2022-12-04] MEDS ORDERED: NITROGLYCERIN SPRAY/4.9GM CAN TL ONE (14:00)
[2022-12-04 16:00] VITALS: BP 150/84
[2022-12-04] MEDS: ASPIRIN 81MG TABLET PO SCH (19:27)
[2022-12-04] MEDS: LEVETIRACETAM 500MG TABLET PO SCH (19:27)
[2022-12-05] MEDS ORDERED: FAMOTIDINE 20MG TABLET PO SCH (09:00)
== END 2022-12-04 19:25 | DRG 92 ==
LOC: ER 09:39 → EDBEDREQ 12:52 → EDBEDREQTM 12:52 → EDBEDREQSVC 12:52 → ER 15:13 → MICUSO 15:47 → 6EST 12-03 10:45
PROVIDERS: ADMIT Hospitalist; ATTEND Hospitalist
PROC: 4A00X4Z Measurement of Central Nervous Electrical Activity, External Approach (ICD-10-PCS; principal; 2022-12-03)
PROC: 02HV33Z Insertion of Infusion Device into Superior Vena Cava, Percutaneous Approach (ICD-10-PCS; 2022-12-04)
PROC: B5181ZA Fluoroscopy of Superior Vena Cava using Low Osmolar Contrast, Guidance (ICD-10-PCS; 2022-12-04)
PROC: B548ZZA Ultrasonography of Superior Vena Cava, Guidance (ICD-10-PCS; 2022-12-04)
DX: R29.810 Facial weakness (principal); E46 Unspecified protein-calorie malnutrition; I16.1 Hypertensive emergency; I50.32 Chronic diastolic (congestive) heart failure; Z68.43 Body mass index [BMI] 50.0-59.9, adult; E78.00 Pure hypercholesterolemia, unspecified; G40.909 Epilepsy, unspecified, not intractable, without status epilepticus; G43.909 Migraine, unspecified, not intractable, without status migrainosus; I11.0 Hypertensive heart disease with heart failure; I25.10 Atherosclerotic heart disease of native coronary artery without angina pectoris; E66.01 Morbid (severe) obesity due to excess calories; G89.29 Other chronic pain; E78.5 Hyperlipidemia, unspecified; R29.705 NIHSS score 5; Z68.37 Body mass index [BMI] 37.0-37.9, adult; Z95.0 Presence of cardiac pacemaker; Z90.710 Acquired absence of both cervix and uterus; Z79.01 Long term (current) use of anticoagulants; Z79.02 Long term (current) use of antithrombotics/antiplatelets; Z79.82 Long term (current) use of aspirin; Z79.899 Other long term (current) drug therapy; Z86.16 Personal history of COVID-19; Z86.718 Personal history of other venous thrombosis and embolism; Z90.49 Acquired absence of other specified parts of digestive tract; I69.344 Monoplegia of lower limb following cerebral infarction affecting left non-dominant side
CPT/HCPCS: 36415; 36573; 70496; 70498; 71045; 71275; 74174; 75571; 80048; 80053; 80061; 80305; 80320; 81003; 82550; 82553; 82607; 82746; 82962; 83036; 83605; 83735; 83880; 84100; 84439; 84443; 84484; 85025; 85379; 86850; 86900; 87426; 93005; 93308; 93970; 95816; 97162; 97166; 97530; 99291; C1725; C9113; J2270; J2405; Q9967; A4315; G0480